=== PATIENT | female | born 1975 | race Caucasian/White ===

== ENCOUNTER 2017-02-17 10:44 | Emergency (ER) | payer BC ==
[2017-02-17] MEDS ORDERED: Adenosine 6 MG/2 ML SDV IVPUSH ONE (11:08)
[2017-02-17] MEDS ORDERED: Diltiazem 25 MG/5 ML SDV IVPUSH ONE ×2 (11:18→12:41)
--- NOTE | 2017-02-17 11:20 | EDM.PDOC ---
ED HPI GENERAL MEDICAL PROBLEM - General Chief Complaint: Cardiovascular Problem Stated Complaint: IRREGULAR HEARTBEAT Time Seen by Provider: 02/17/17 11:20 Source of Information: Reports: Patient History Limitations: Reports: No Limitations - History of Present Illness INITIAL COMMENTS - FREE TEXT/NARRATIVE: pt arrived with a rapid heart rate in the 180 range. This started about 8 am, She has had slight chest tightness. She was a little sweaty. She does admit to drinking last nite having 7-8 drinks. Onset: Today, Sudden Duration: Hour(s): Location: Reports: Chest, Other ( rapid atrial fib. ) Quality: Reports: Ache Severity: Moderate - Related Data Allergies Allergy/AdvReac Type Severity Reaction Status Date / Time ivp dye Allergy Anaphylactic Uncoded 02/17/17 11:31 Shock Home Meds: Home Meds Levothyroxine 200 mcg PO ACBREAKFAST 02/17/17 [History] ED ROS GENERAL - Review of Systems Review Of Systems: See Below Constitutional: Reports: No Symptoms HEENT: Reports: No Symptoms Respiratory: Reports: Shortness of Breath Cardiovascular: Reports: Palpitations GI/Abdominal: Reports: No Symptoms : Reports: No Symptoms Musculoskeletal: Reports: No Symptoms Skin: Reports: No Symptoms Neurological: Reports: Dizziness ED EXAM, GENERAL - Physical Exam Exam: See Below Free Text/Narrative:: Pt developd a rapid heart rhythm about 8 am She has had slight chest tightness. Exam Limited By: No Limitations General Appearance: Alert, Anxious Ears: Normal TMs Nose: Normal Inspection Throat/Mouth: Normal Inspection Head: Atraumatic Respiratory/Chest: No Respiratory Distress Cardiovascular: Irregularly Irregular, Other ( rate is 180. ) GI/Abdominal: Soft, Non-Tender (Female) Exam: Deferred Rectal (Female) Exam: Deferred Back Exam: Normal Inspection Extremities: Normal Inspection Neurological: Alert, Oriented, Normal Cognition Psychiatric: Normal Affect Course - Vital Signs Last Recorded V/S: Last Vital Signs Temp 36.6 C 02/17/17 11:10 Pulse 97 02/17/17 14:06 Resp 18 02/17/17 14:06 BP 116/76 02/17/17 14:06 Pulse Ox 98 02/17/17 14:06 - Orders/Labs/Meds Orders: Active Orders 24 hr Category Date Time Status Diltiazem [Cardizem] 100 mg Med 02/17/17 11:30 Active Sodium Chloride 0.9% [Normal Saline] 100 ml IV TITRATE Sodium Chloride 0.9% [Normal Saline] 1,000 ml Med 02/17/17 11:30 Active IV ASDIRECTED Medication Orders Sodium Chloride (Normal Saline) 1,000 mls @ 999 mls/hr IV ASDIRECTED ANTHONY Last Admin: 02/17/17 11:18 Dose: 999 mls/hr Diltiazem HCl 100 mg/ Sodium (Chloride) 100 mls @ 5 mls/hr IV TITRATE ATNHONY; 5 MG /HR PRN Reason: Protocol Last Titration: 02/17/17 11:41 Dose: 10 mg/hr, 10 mls/hr Admin: 02/17/17 11:35 Dose: 5 mg/hr, 5 mls/hr Labs: Laboratory Tests 02/17/17 02/17/17 02/17/17 Range/Units 11:30 11:30 11:30 WBC 10.9 (4.5-11.0) K/uL RBC 4.81 (3.30-5.50) M/uL Hgb 13.9 (12.0-15.0) g/dL Hct 40.6 (36.0-48.0) % MCV 84 (80-98) fL MCH 29 (27-31) pg MCHC 34 (32-36) % Plt Count 310 (150-400) K/uL Neut % (Auto) 79 H (36-66) % Lymph % (Auto) 15 L (24-44) % [place] % (Auto) 6 (2-6) % Eos % (Auto) 0 L (2-4) % Baso % (Auto) 0 (0-1) % Sodium 141 (140-148) mmol/L Potassium 4.3 (3.6-5.2) mmol/L Chloride 106 (100-108) mmol/L Carbon Dioxide 28 (21-32) mmol/L Anion Gap 6.6 (5.0-14.0) mmol/L BUN 11 (7-18) mg/dL Creatinine 0.7 (0.6-1.0) mg/dL Est Cr Clr Drug Dosing 96.13 mL/min Estimated GFR (MDRD) > 60 (>60) Glucose 112 H (74-106) mg/dL Calcium 8.7 (8.5-10.1) mg/dL Total Bilirubin 0.4 (0.2-1.0) mg/dL AST 29 (15-37) U/L ALT 35 (12-78) U/L Alkaline Phosphatase 95 (46-116) U/L Troponin I < 0.017 (0.000-0.056) ng/mL Total Protein 7.3 (6.4-8.2) g/dL Albumin 4.0 (3.4-5.0) g/dL Globulin 3.3 (2.3-3.5) g/dL Albumin/Globulin Ratio 1.2 (1.2-2.2) TSH, Ultra Sensitive (0.358-3.740) uIU/mL Urine Color Urine Appearance Urine pH (4.5-8.0) Ur Specific Lissie (1.008-1.030) Urine Protein (NEGATIVE) mg/dL Urine Glucose (UA) (NEGATIVE) mg/dL Urine Ketones (NEGATIVE) mg/dL Urine Occult Blood (NEGATIVE) Urine Nitrite (NEGATIVE) Urine Bilirubin (NEGATIVE) Urine Urobilinogen (NORMAL) mg/dL Ur Leukocyte Esterase (NEGATIVE) Urine RBC (0-5) Urine WBC (0-5) Ur Epithelial Cells Amorphous Sediment Urine Bacteria Urine Mucus 02/17/17 02/17/17 Range/Units 12:00 14:04 WBC (4.5-11.0) K/uL RBC (3.30-5.50) M/uL Hgb (12.0-15.0) g/dL Hct (36.0-48.0) % MCV (80-98) fL MCH (27-31) pg MCHC (32-36) % Plt Count (150-400) K/uL Neut % (Auto) (36-66) % Lymph % (Auto) (24-44) % [place] % (Auto) (2-6) % Eos % (Auto) (2-4) % Baso % (Auto) (0-1) % Sodium (140-148) mmol/L Potassium (3.6-5.2) mmol/L Chloride (100-108) mmol/L Carbon Dioxide (21-32) mmol/L Anion Gap (5.0-14.0) mmol/L BUN (7-18) mg/dL Creatinine (0.6-1.0) mg/dL Est Cr Clr Drug Dosing mL/min Estimated GFR (MDRD) (>60) Glucose (74-106) mg/dL Calcium (8.5-10.1) mg/dL Total Bilirubin (0.2-1.0) mg/dL AST (15-37) U/L ALT (12-78) U/L Alkaline Phosphatase (46-116) U/L Troponin I (0.000-0.056) ng/mL Total Protein (6.4-8.2) g/dL Albumin (3.4-5.0) g/dL Globulin (2.3-3.5) g/dL Albumin/Globulin Ratio (1.2-2.2) TSH, Ultra Sensitive 0.735 (0.358-3.740) uIU/mL Urine Color Yellow Urine Appearance Slightly cloudy Urine pH 7.0 (4.5-8.0) Ur Specific Lissie 1.010 (1.008-1.030) Urine Protein Negative (NEGATIVE) mg/dL Urine Glucose (UA) Normal (NEGATIVE) mg/dL Urine Ketones 15 H (NEGATIVE) mg/dL Urine Occult Blood Negative (NEGATIVE) Urine Nitrite Negative (NEGATIVE) Urine Bilirubin Negative (NEGATIVE) Urine Urobilinogen Normal (NORMAL) mg/dL Ur Leukocyte Esterase Negative (NEGATIVE) Urine RBC 0-5 (0-5) Urine WBC 0-5 (0-5) Ur Epithelial Cells Many Amorphous Sediment Not seen Urine Bacteria Not seen Urine Mucus Few Meds: Medications Generic Name Dose Route Start Last Admin Trade Name Freq PRN Reason Stop Dose Admin Sodium Chloride 1,000 mls @ 999 mls/hr 02/17/17 11:30 02/17/17 11:18 Normal Saline IV 999 mls/hr ASDIRECTED ANTHONY Administration Diltiazem HCl 100 mg/ Sodium 100 mls @ 5 mls/hr 02/17/17 11:30 02/17/17 11:41 Chloride IV 10 mg/hr TITRATE ANTHONY 10 mls/hr Protocol Titration 5 MG/HR Discontinued Medications Generic Name Dose Route Start Last Admin Trade Name Freq PRN Reason Stop Dose Admin Adenosine 6 mg 02/17/17 11:08 02/17/17 11:14 Adenocard IVPUSH 02/17/17 11:09 6 mg NOW ONE Administration Diltiazem HCl 10 mg 02/17/17 11:18 02/17/17 11:22 Diltiazem IVPUSH 02/17/17 11:19 10 mg ONETIME ONE Administration Diltiazem HCl 10 mg 02/17/17 12:41 02/17/17 12:45 Diltiazem IVPUSH 02/17/17 12:42 10 mg ONETIME ONE Administration Ondansetron HCl 4 mg 02/17/17 11:59 02/17/17 12:06 Zofran IVPUSH 02/17/17 12:00 4 mg ONETIME ONE Administration Propofol Confirm 02/17/17 13:17 Diprivan 20 Ml Administered 02/17/17 13:18 Dose 200 [address] [facility] ONE - Re-Assessments/Exams Free Text/Narrative Re-Assessment/Exam: 02/17/17 12:51 pt arrived with a rapid heart rate with some chest tightness. She had a heart rate of 180. Pt has not had a tachcardia in the past,. Her lab work looked good. She was given 2 boluses of cardizem and a cardizem drip was started and titrated. Pt did not respond and her rate stayed at 170. Dr Rodriguez was consulted and he agreed that she should be elctrically cardoverted. She feels much better since she is converted. 02/17/17 12:56 02/17/17 12:57 02/17/17 14:11 Departure - Departure Time of Disposition: 14:19 Disposition: Home, Self-Care 01 Condition: Fair Clinical Impression: Atrial fibrillation, Encounter for cardioversion procedure Referrals: Ebonie Tracy, CARE TEAM ASSISTANT [Primary Care Provider] - Forms: ED Department Discharge Care Plan Goals: No further alchol use until she is evaluated further, Appt with regular Dr next week, a copy of labs and ekgs and chest xray will be sent with her rtc if any problems. Pt shouuld be seen by cardiology in the near future. - My Orders Last 24 Hours: My Active Orders 02/17/17 11:30 Diltiazem [Cardizem] 100 mg Sodium Chloride 0.9% [Normal Saline] 100 ml IV TITRATE Sodium Chloride 0.9% [Normal Saline] 1,000 ml IV ASDIRECTED - Assessment/Plan Last 24 Hours: My Active Orders 02/17/17 11:30 Diltiazem [Cardizem] 100 mg Sodium Chloride 0.9% [Normal Saline] 100 ml IV TITRATE Sodium Chloride 0.9% [Normal Saline] 1,000 ml IV ASDIRECTED
[2017-02-17] MEDS ORDERED: Sodium Chloride 0.9% 1,000 ML IV SCH (11:30)
[2017-02-17] MEDS ORDERED: Diltiazem 100 MG in Sodium Chloride 0.9% 100 ML IV SCH (11:30)
--- NOTE | 2017-02-17 11:34 | CR ---
Chest 1V Frontal HISTORY: sob, rapid heart rate. COMPARISON: None FINDINGS: Portable chest, 1121 hours. Lungs appear clear and normally aerated. There is no pneumothorax. Cardiomediastinal silhouette is wi thin normal limits. No vascular redistribution or pleural fluid can be seen. Bony structures and soft tissues are unremarkable. IMPRESSION: No acute chest abnormality identified.
[2017-02-17] MEDS ORDERED: Ondansetron 4 MG/2 ML SDV IVPUSH ONE (11:59)
[2017-02-17] MEDS ORDERED: Propofol 200 MG/20 ML SDV ONE (13:17)
--- NOTE | 2017-02-17 13:26 | PCM.OPNOTE ---
- General Post-Op/Procedure Note Date of Surgery/Procedure: 02/17/17 Operative Procedure(s): Electrical cardioversion Pre Op Diagnosis: Atrial fibrillation with rapid ventricular response Post-Op Diagnosis: Atrial fibrillation with rapid ventricular response successfully converted to sinus rhythm Anesthesia Technique: Moderate Sedation Primary Surgeon: Omi Rodriguez Anesthesia Provider: Omi Brunner Complications: None Condition: Good Free Text/Narrative:: Ms. Avilez is a 41-year-old woman who I was asked to see in the emergency department by Dr. Bryant for electrical cardioversion. Ms. Avilez very healthy and denies any previous history of cardiac disease. When she woke this morning noted a rapid irregular heart rhythm and presented to the emergency department for further evaluation. EKG and cardiac monitoring show atrial fibrillation with rapid ventricular response. She was given IV Cardizem bolus and continuous infusion with only minimal improvement in her rate control. She confirmed that she had not eaten since last night. We discussed options for management including rate control versus cardioversion and she opted to proceed with electrical cardioversion. Risks and goals of procedure reviewed with the patient and she gave informed consent to proceed. IV sedation and airway management was provided by Mr. Brunner from the anesthesia department. After adequate sedation was achieved she was cardioverted to sinus rhythm using 200 J of energy delivered in a synchronized fashion. She will be monitored in the emergency department until recovered from IV sedation. She has been instructed not to drive or use heavy equipment for 24 hours after the IV sedation. Follow- up appointment should be scheduled with her primary care provider within one week, consider echocardiogram and referral to electrical physiology.
[2017-02-17 14:16] VITALS: BP 116/76
== END 2017-02-17 14:35 | disposition home or self-care (01) ==
LOC: JP.ED 10:44
DX: I48.91 Unspecified atrial fibrillation (principal); Z91.041 Radiographic dye allergy status
CPT/HCPCS: 36415; 71010; 80053; 81001; 84443; 84484; 85025; 92960; 93005; 96365; 96366; 96375; 96376; 99285; J0153; J2405; J2704; J3490; J7030; J7040